=== PATIENT | female | born 1970 | race Caucasian/White ===

== ENCOUNTER 2017-08-30 18:39 | Emergency (ER) | payer MEDICAID, SELFPAY ==
[2017-08-30 18:41] VITALS: BP 130/85; PULSE 95; RESP 16; TEMP 36.8; BMI 24.1
--- NOTE | 2017-08-30 20:24 | ED.DCSUM_ITS ---
- ER Visit Summary Date of Service: 08/30/17 Chief Complaint: Acute headache with history of migraines History of Present Illness: The patient is a 47 F history of migraines. States she has been getting intermittent headaches for the last several weeks to months. States she is under a lot of stress. Denies any head trauma. No history of intracranial bleeds. No family history of intracranial bleeds or aneurysms. There is a family history of migraines. Patient denies any sinus congestion. Says that these are gradual in onset and not thunderclap. Physical Examination: Well-appearing middle-age female. Lying in bed darkened room. Vital signs are stable afebrile. HEENT exam unremarkable no sinus tenderness. No trauma. Pupils round reactive light. Normal speech. No facial droop. Neck nontender full range of motion no meningismus. Lungs clear to auscultation bilaterally. Heart regular rhythm no murmur. Abdomen soft nontender. Moving all 4 extremities. Neurovascularly intact. Neurologically she is awake and alert with no focal motor or sensory deficits. NIH score is 0. Normal outreach liaison strength. Normal fingertip to nose. Normal dorsi plantarflexion. Normal speech. Test Results: Previously she has had a CAT scan done which was negative. I do not feel like she needs repeat imaging tonight. Emergency Department Course and Treatment: She will be treated with IV fluids, Toradol, Benadryl and Phenergan reassessed. Headache is resolving after Treatment Plan: Repeat exam patient is doing better after the IV medications. She did get somewhat anxious which is most likely a reaction to the Phenergan. She was given IV Ativan. Her neurologic exam remains normal. She will be discharged home with a prescription for Imitrex. Disposition: Discharge Impression: Cephalgia with a history of migraines This note was generated with [employer] dictation software. It may contain incorrect words, spelling, and punctuation that were not noted in review of the chart prior to signing ED Disposition - Plan for ED Patient: Chief Complaint: Headache Referrals: Care Physician,No Primary [NON-STAFF] -
[2017-08-30 20:47] VITALS: BP 121/81; PULSE 68; RESP 14; O2SAT 98
[2017-08-30] MEDS: DiphenhydrAMINE 50 MG/ML Syringe 25 MG IV (20:49)
[2017-08-30] MEDS: Ketorolac 30 MG/ML Syringe IV (20:49)
[2017-08-30] MEDS: 0.9% Normal Saline 1,000 ML 1000 ML IV (20:49)
[2017-08-30] MEDS: proMETHazine 25 MG/ML Syringe 12.5 MG IV (20:49)
[2017-08-30] MEDS: LORazepam 2 MG/ML Syringe 1 MG IV (22:13)
--- NOTE | 2017-08-30 22:22 | ED.DEP ---
ED Disposition - Plan for ED Patient: Disposition: Home or Assisted Living Chief Complaint: Headache Instructions: ED Headache Migraine Prescriptions: Sumatriptan Succinate [Imitrex] 25 mg PO Q4H PRN PRN #10 tab PRN Reason: Migraine Symptoms Referrals: Care Physician,No Primary [NON-STAFF] - 3-5 Days if not improving Additional Instructions: Fluids and rest. Imitrex as needed for the headaches.
[2017-08-30] MEDS: SUMAtriptan 6 MG/0.5 ML Vial SC (22:49)
[2017-08-30 23:12] VITALS: BP 116/91; PULSE 74; RESP 16; O2SAT 97
== END 2017-08-30 23:20 | disposition home or self-care (01) ==
PROVIDERS: Emergency Provider Emergency Medicine; Family Provider Internal Medicine; PCP Internal Medicine
DX: G43.909 Migraine, unspecified, not intractable, without status migrainosus (principal)
CPT/HCPCS: 96361; 96372; 96374; 96375; 99283; J7030; A4216; J3030

== ENCOUNTER 2017-09-01 09:59 | Emergency (ER) | payer MEDICAID, SELFPAY ==
[2017-09-01 10:01] VITALS: BP 144/75; PULSE 72; RESP 16; TEMP 36.4; O2SAT 100; BMI 24.1
--- NOTE | 2017-09-01 10:16 | CT_ITS ---
STUDY: CT BRAIN WITHOUT CONTRAST REASON FOR EXAM: Female, 47 years old. 4 day history of headaches and dizziness. Tingling and pain in the right upper extremity. RADIATION DOSAGE (If Supplied By Facility): CTDIvol = ( 44.99 ) mGy, DLP = ( 796.11 ) mGycm TECHNIQUE: Transaxial CT imaging of the brain was performed without administration of intravenous contrast material. Individualized dose optimization techniques were used for this CT. COMPARISON: Comparison is made with prior study dated August 24, 2015. FINDINGS: Normal soft tissue structures. Normal calvarium. Normal size ventricles and extra-axial spaces for the patient's age. Normal white matter tracts of the cerebral hemispheres. There are small punctate calcifications of the basal ganglia which are seen in the aging brain as a normal variant. Normal brainstem. Normal cerebellum. There is no intracranial hemorrhage. There are no findings of an acute ischemic infarction. Normal visualized paranasal sinuses. CT/Brain/Head without Contrast IMPRESSION: Normal unenhanced CT scan of the brain. Electronically Signed: Issa Urena MD at 11:03 EDT Tel [phone], Service support ,
--- NOTE | 2017-09-01 10:26 | ED.VISSUMM ---
- ER Visit Summary Date of Service: 09/01/17 Chief Complaint: [] History of Present Illness: The patient is a 47 F [] Physical Examination: [] Test Results: [] Emergency Department Course and Treatment: [] Treatment Plan: [] Disposition: [] Impression: [] This note was generated with [employer] dictation software. It may contain incorrect words, spelling, and punctuation that were not noted in review of the chart prior to signing ED Disposition - Plan for ED Patient: Chief Complaint: General Illness Referrals: Ana Cohen MD [Primary Care Provider] -
[2017-09-01 10:34] LABS: Absolute Lymphocyte Count 1.54 X10^3/ul (0.83-4.51); Absolute Neutrophil Count 3.5 X10^3/uL (2.0-7.7); Basophil# 0.01 X10^3/uL; Basophil% 0.2 % (0-1); Eosinophil# 0.21 X10^3/uL; Eosinophils% 3.8 % (0-5); Lymphocyte # 1.54 X10^3/ul (4.0); Lymphocyte % 27.9 % (19-41); Mean Corp Hgb Conc 34.2 g/gl (32-36); Mean Corpuscular Hgb 28.3 pg (27.0-32.0); Mean Corpuscular Volume 82.8 fL (81-99); Mean Platelet Vol. 9.4 fl (6.2-12.0); Monocyte# 0.22 X10^3/uL; Neutrophil # 3.53 X10^3/uL (2.7-7.7); Neutrophil % 64.1 % (47-70); Platelet Count 306 K/mm3 (150-450); RBC Distribution Width CV 12.4 % (11.6-14.6); RBC Distribution Width SD 37.4 fl (35.1-43.9); Red Blood Count 4.59 M/mm3 (4.2-5.4); White Blood Count 5.5 K/mm3 (4.4-11.0)
--- NOTE | 2017-09-01 10:34 | ED.DCSUM_ITS ---
- ER Visit Summary Date of Service: 09/01/17 Chief Complaint: Acute persistent right sided throbbing headache History of Present Illness: The patient is a 47 F who was seen on August 27 for right sided unilateral throbbing headache associated with nausea and vomiting and stress incontinence. She was treated with migraine cocktail. Since she had significant results she was treated with Imitrex. She states she has an appointment next week with nurse practitioner and is not able to see her primary care physician until . She feels that her gait is abnormal. She also reports adams Huff right eye only. She has an appointment with ophthalmology on Monday. She denies fever, chills or night sweats. She denies loss of vision or double vision. She denies photophobia. She denies ringing in her ears or decreased hearing. She denies any change in her voice, difficulty swallowing or breathing. She denies any anterior neck pain. She complains of right-sided neck pain and pain going down her right upper extremity to the fingers. With regards to the pain in the right upper extremity she denies any alleviating, precipitating or exacerbating factors. She denies decreased grasp or dropping things. She denies any chest pain, shortness of breath or difficulty breathing. She does complain of nauseousness. She denies any vomiting since Monday. She denies bowel or bladder dysfunction. She denies any radicular symptoms. She presently denies any anesthesia, paresthesia or motor weakness. Physical Examination: Vital signs remarkable blood pressure of 144/75. She is afebrile. Head is atraumatic normocephalic. Pupils are equal round reactive. Extraocular muscles are intact. There is no tenderness over the right or left temporal artery. There are no facial skin lesions to suggest herpes varicella- zoster. TMs are pearly white with landmarks noted. Nares patent with no drainage. Posterior pharynx without erythema or exudate. Uvula is midline. There is no dysphonia or dysphasia. Trachea is midline. There is no stridor with auscultation of the neck. There is no nuchal rigidity or meningeal symptoms or findings. Heart is regular without murmur, gallop or rub. S1 and S2 are normal. Lungs are clear to auscultation with good movement of air bilaterally. Abdomen is soft nontender. Bowel sounds are present normal. Patient is alert and oriented ?3. Motor is 5 over 5. Sensory is intact. DTRs are symmetric with no clonus or Babinski sign. Cranial 2 through 12 are intact. Cerebellar testing is normal. Gait was observed and there is no ataxia. She is able to walk on her heels and toes. Romberg test with eyes open and closed is normal. Very, median, radial and ulnar function intact. When patient stood to walk she began to cry and states that her balance is off. Test Results: CBC is normal. Electrolyte panel is unremarkable. ESR is 1, which is normal. CT of the head without contrast reviewed by me and interpreted by radiologist is unremarkable. Emergency Department Course and Treatment: Since patient reports persistent headache and problems with walking and states this headache is unusual, which she denied when questioned prior visit, will obtain a CT of the head, CBC, BMP and ESR to evaluate her symptoms of headache with visual change and numbness right upper extremity. Patient was initially treated with 25 mg of Benadryl IV push and 12.5 mg of Phenergan IV push. She was reassessed and informed of her lab results and CAT scan results. She states she now has a tension-like headache. Since there is no evidence of a bleed on the CT she received 30 mg of Toradol IV push. I was informed at 1152 the patient's headache resolved and she would like to go home. Treatment Plan: Outpatient follow-up and discuss with PCP prophylactic treatment Disposition: Discharged to home in stable and improved condition Impression: Acute persistent migraine headache This note was generated with [employer] dictation software. It may contain incorrect words, spelling, and punctuation that were not noted in review of the chart prior to signing ED Disposition - Plan for ED Patient: Disposition: Home or Assisted Living Chief Complaint: General Illness Instructions: ED Headache Migraine, ED Headache Tension Referrals: Ana Cohen MD [Primary Care Provider] - 1-2 Weeks Additional Instructions: Recommend discussing prophylactic medication for migraine headaches your primary care provider.
[2017-09-01 10:43] LABS: POSITIVE COUNT NO; POSITIVE DIFFERENTIAL NO; POSITIVE MORPHOLOGY NO
[2017-09-01 10:54] LABS: Anion Gap 6 (5-15); BUN 18 mg/dL (7-18); BUN/Creat Ratio 25.4 RATIO (10-20); Calcium,Total 8.2 mg/dL (8.5-10.1); Chloride 109 mmol/L (98-107); Creatinine, Serum 0.71 mg/dL (0.55-1.02); EST Glomerular Filtration Rate 94 mL/min (>60); Est Glom Filt Rate - Afr Amer 114 mL/min (>60); Estimated Creatinine Clearance 95.26 ml/min; Glucose 90 mg/dL (74-106); Potassium 3.6 mmol/L (3.5-5.1); Sodium Level 142 mmol/L (136-145)
--- NOTE | 2017-09-01 10:58 | ED.DCSUM_ITS ---
- ER Visit Summary Date of Service: 09/01/17 Chief Complaint: [] History of Present Illness: The patient is a 47 F [] Physical Examination: [] Test Results: [] Emergency Department Course and Treatment: [] Treatment Plan: [] Disposition: [] Impression: [] This note was generated with [employer] dictation software. It may contain incorrect words, spelling, and punctuation that were not noted in review of the chart prior to signing ED Disposition - Plan for ED Patient: Chief Complaint: General Illness Referrals: Ana Cohen MD [Primary Care Provider] -
[2017-09-01 11:00] LABS: Erythrocyte Sedimentation Rate 1 mm/hr (0-20)
[2017-09-01] MEDS: Ketorolac 30 MG/ML Syringe IV (11:27)
[2017-09-01 12:09] VITALS: BP 114/77; PULSE 65; RESP 15; O2SAT 95
== END 2017-09-01 12:07 | disposition home or self-care (01) ==
PROVIDERS: Emergency Provider Emergency Medicine; Family Provider Internal Medicine; PCP Internal Medicine
DX: G43.909 Migraine, unspecified, not intractable, without status migrainosus (principal); G44.209 Tension-type headache, unspecified, not intractable
CPT/HCPCS: 70450; 80048; 85025; 85652; 96374; 99283; A4216